=== PATIENT | female | born 1970 | race Caucasian/White ===

== ENCOUNTER 2020-05-31 12:34 | Outpatient (CLI) | payer OTHER, SELFPAY ==
--- NOTE | ~2020-05-31 | CT_ITS ---
EXAMINATION: CT pelvis w con DATE: 05/31/2020 13:09 INDICATION: Intra-abdominal and pelvic swelling, mass and lump. TECHNIQUE: Computed tomography (CT) of the pelvis was performed with 100 mL Omnipaque 350 intravenous contrast. Automated exposure control and iterative reconstruction technique were employed. The dose- length product was 247.64 mGy-cm. COMPARISON: None FINDINGS: There are no dilated loops of bowel. There is trace pelvic ascites. There are no pathologic ally enlarged lymph nodes. The bladder is distended. There is subcutaneous fat stranding in low anter ior abdominal wall, likely inflammation/scarring from prior surgery. There is moderate lower lumbar s pondylosis. IMPRESSION: 1. Subcutaneous fat stranding in lower anterior abdominal wall, likely inflammation/scarring from rec ent hysterectomy. Reviewed, dictated and finalized at location A. IMPRESSION: 1. Subcutaneous fat stranding in lower anterior abdominal wall, likely inflamma tion/scarring from recent hysterectomy.
[2020-05-31 12:58] LABS: Estimated Glomerular Filt Rate > 60
== END 2020-05-31 12:35 | disposition home or self-care (01) ==
PROVIDERS: PCP Internal Medicine; Visit Provider Internal Medicine
DX: R19.00 Intra-abdominal and pelvic swelling, mass and lump, unspecified site (principal)
CPT/HCPCS: 72193; Q9967

== ENCOUNTER 2021-03-29 01:50 | Day surgery (SDC) | payer OTHER, SELFPAY ==
[2021-03-15 12:29] VITALS: BMI 25.4
[2021-03-29 06:24] VITALS: BP 132/89; PULSE 77; RESP 18; TEMP 36.2; O2SAT 99
[2021-03-29] MEDS: LACTATED RINGERS 1,000 ML 150 ML IV CONT (06:29)
[2021-03-29 06:35] LABS: Glucose Point of Care 139 mg/dl (65-105)
--- NOTE | 2021-03-29 07:27 | WPDANESEPPF ---
Anes - Initial Pre Proc Eval Procedure: Operation Date: 03/29/21 07:30 Proposed Procedures p Screening Colonoscopy - Devon Gillis MD Date/Time: 03/29/21 07:27 Surgeon: Devon Gillis MD Pre Op Diagnosis: family hx of colon ca, neoplasm screening Patient Data Age: 50 Gender: F Height: 1.6 m Weight: 64.4 kg Last Vital Signs Temp 97.2 F L 03/29/21 06:24 Pulse 77 03/29/21 06:24 Resp 18 03/29/21 06:24 BP 132/89 03/29/21 06:24 Pulse Ox 99 03/29/21 06:24 Allergies Allergy/AdvReac Type Severity Reaction Status Date / Time azithromycin Allergy Severe Nausea and Verified 03/29/21 06:22 Vomiting clarithromycin Allergy Severe Nausea and Verified 03/29/21 06:22 Vomiting erythromycin base Allergy Severe Nausea and Verified 03/29/21 06:22 Vomiting trazodone AdvReac Intermediate Other Verified 03/29/21 06:22 Home Medications Medication Instructions Recorded Confirmed Type aspirin 81 mg tablet,delayed 81 mg PO DAILY 09/28/19 03/15/21 History release clonazepam 0.5 mg tablet 0.5 mg PO DAILY PRN #90 tablet 10/10/19 03/15/21 Rx alpha lipoic acid 600 mg capsule 1,200 mg PO DAILY cap 11/14/19 03/15/21 History cholecalciferol (vitamin D3) 100 4,000 unit PO DAILY 11/14/19 03/15/21 History mcg (4,000 unit) capsule vitamin B complex 1 tablet PO DAILY 11/14/19 03/15/21 History sitagliptin 100 mg tablet 100 mg PO DAILY #90 tablet 09/24/20 03/15/21 Rx rosuvastatin 40 mg tablet 40 mg PO DAILY #90 tablet 12/19/20 03/15/21 Rx albuterol sulfate 1 - 2 puff INHALATION PRN PRN 03/15/21 03/15/21 History icosapent ethyl [Vascepa] 2 gm PO BID 03/15/21 03/15/21 History magnesium oxide 400 mg PO DAILY 03/15/21 03/15/21 History montelukast 10 mg PO DAILY 03/15/21 03/15/21 History yy-th-[id number]-FA-Ca carb-vit K 1 tablet PO DAILY 03/15/21 03/15/21 History [Women's Multivitamin] metoprolol succinate 50 mg See Rx Instructions .ROUTE 03/18/21 Rx tablet,extended release 24 hr .COMPLEX #90 tablet levothyroxine 100 mcg tablet See Rx Instructions .ROUTE 03/28/21 Rx .COMPLEX #90 tablet Laboratory Tests 03/29/21 06:29 POC Capillary Glucose 139 mg/dl H mg/dl (65-105) Patient hx anesthesia problems: none Family hx anesthesia problems: none PMFSH Past Medical History Medical History (Updated 01/17/21 @ 08:25 by Hanh Muniz [facility]) A-fib BMI 25.0-25.9,adult BMI 26.0-26.9,adult BMI 27.0-27.9,adult Disorder of lipoprotein metabolism, unspecified DM type 2 (diabetes mellitus, type 2) Eczema Elevated platelet count Encounter for routine adult health examination without abnormal findings Family history of colon cancer Rahat's thyroiditis Hearing loss of both ears History of fatty infiltration of liver Hx of TIA (transient ischemic attack) and stroke Hyperlipemia Hypersomnolence Insomnia On [employer] drug therapy PCOS (polycystic ovarian syndrome) Perforated eardrum Pre-diabetes Screening for colon cancer Thrombocytosis Toenail torn away Surgical History Surgical History S/P hysterectomy Family History Family History Father Family history of diabetes mellitus in first degree relative Carcinoma of colon Mother Family history of diabetes mellitus in first degree relative Family history of coronary artery disease Sibling Family history of diabetes mellitus in first degree relative Grandparent Family history of coronary artery disease Unknown Asthma Social History Social History Smoking status: Never smoker Alcohol intake: current Substance use: never Substance use type: does not use Living arrangements: with family Spiritual care concerns: No Anes - Eval Final PreProcedure Day of Procedure 03/29/21 07:27 Patient weight: normal Heart: regular rate
--- NOTE | 2021-03-29 07:33 | PM.HPGS ---
History of Present Illness History of Present Illness Consent: Risks, benefits, and alternatives have been discussed and questions answered. Patient agrees to proceed with procedure. Chief complaint: family hx of colon ca, neoplasm screening Narrative: Lauren Rosales is a 50 year old female here for first screening colonoscopy, father had colon cancer Review of Systems Constitutional: Constitutional: Denies headache(s) and Denies weakness Eyes: Eyes: Denies blurry vision ENT: Reports Normal hearing present, Denies headache(s) and Denies neck pain Cardiovascular: Cardiovascular: Denies chest pain and Denies dyspnea Respiratory: Respiratory: Denies dyspnea Gastrointestinal: Gastrointestinal: Reports no additional gastrointestinal complaints Genitourinary: Genitourinary: Denies dysuria Musculoskeletal: Musculoskeletal: Denies neck pain Integumentary/Breasts: Skin/Breast: Denies dry skin Neurologic: Reports Normal hearing present, Denies headache(s) and Denies weakness Psychiatric: Psychiatric: Denies anxiety Endocrine: Endocrine: Denies change in body appearance Hematologic/Lymphatic: Hematologic/Lymphatic: Denies easy bleeding Allergic/Immunologic: Allergic/Immunologic: Denies urticaria [facility] Past Medical History Medical History (Updated 01/17/21 @ 08:25 by Hanh Muniz C[facility]) A-fib BMI 25.0-25.9,adult BMI 26.0-26.9,adult BMI 27.0-27.9,adult Disorder of lipoprotein metabolism, unspecified DM type 2 (diabetes mellitus, type 2) Eczema Elevated platelet count Encounter for routine adult health examination without abnormal findings Family history of colon cancer Rahat's thyroiditis Hearing loss of both ears History of fatty infiltration of liver Hx of TIA (transient ischemic attack) and stroke Hyperlipemia Hypersomnolence Insomnia On [facility] drug therapy PCOS (polycystic ovarian syndrome) Perforated eardrum Pre-diabetes Screening for colon cancer Thrombocytosis Toenail torn away Surgical History Surgical History S/P hysterectomy Family History Family History Father Family history of diabetes mellitus in first degree relative Carcinoma of colon Mother Family history of diabetes mellitus in first degree relative Family history of coronary artery disease Sibling Family history of diabetes mellitus in first degree relative Grandparent Family history of coronary artery disease Unknown Asthma Social History Social History Smoking status: Never smoker Alcohol intake: current Substance use: never Substance use type: does not use Living arrangements: with family Spiritual care concerns: No Meds Home Medications and Allergies Home Medications Medication Instructions Recorded Confirmed Type aspirin 81 mg tablet,delayed 81 mg PO DAILY 09/28/19 03/15/21 History release clonazepam 0.5 mg tablet 0.5 mg PO DAILY PRN #90 tablet 10/10/19 03/15/21 Rx alpha lipoic acid 600 mg capsule 1,200 mg PO DAILY cap 11/14/19 03/15/21 History cholecalciferol (vitamin D3) 100 4,000 unit PO DAILY 11/14/19 03/15/21 History mcg (4,000 unit) capsule vitamin B complex 1 tablet PO DAILY 11/14/19 03/15/21 History sitagliptin 100 mg tablet 100 mg PO DAILY #90 tablet 09/24/20 03/15/21 Rx rosuvastatin 40 mg tablet 40 mg PO DAILY #90 tablet 12/19/20 03/15/21 Rx albuterol sulfate 1 - 2 puff INHALATION PRN PRN 03/15/21 03/15/21 History icosapent ethyl [Vascepa] 2 gm PO BID 03/15/21 03/15/21 History magnesium oxide 400 mg PO DAILY 03/15/21 03/15/21 History montelukast 10 mg PO DAILY 03/15/21 03/15/21 History tm-uk-zklu-FA-Ca carb-vit K 1 tablet PO DAILY 03/15/21 03/15/21 History [Women's Multivitamin] metoprolol succinate 50 mg See Rx Instructions .ROUTE 03/18/21 Rx tablet,extended release 24 hr .COMPLEX #90 tablet levo
[2021-03-29 07:46] VITALS: BP 105/60; PULSE 69; RESP 17; O2SAT 98
[2021-03-29 07:56] VITALS: BP 118/78; PULSE 66; RESP 15; O2SAT 100
[2021-03-29 08:06] VITALS: BP 132/68; PULSE 70; RESP 18; O2SAT 100
== END 2021-03-29 08:15 | disposition home or self-care (01) ==
PROVIDERS: PCP Internal Medicine; Visit Provider Internal Medicine Gastroenterology
PROC: 0DJD8ZZ Inspection of Lower Intestinal Tract, Via Natural or Artificial Opening Endoscopic (ICD-10-PCS; CPT 45378; principal; 2021-03-29 07:30)
DX: Z12.11 Encounter for screening for malignant neoplasm of colon (principal); K64.8 Other hemorrhoids; Z80.0 Family history of malignant neoplasm of digestive organs; Z79.82 Long term (current) use of aspirin; Z79.84 Long term (current) use of oral hypoglycemic drugs; I48.91 Unspecified atrial fibrillation; E11.9 Type 2 diabetes mellitus without complications; E06.3 Autoimmune thyroiditis; E28.2 Polycystic ovarian syndrome; Z86.73 Personal history of transient ischemic attack (TIA), and cerebral infarction without residual deficits
CPT/HCPCS: 45378; 82948; J2704; J7120

== ENCOUNTER → 2021-10-30 09:00 | Outpatient (CLI) | payer OTHER, SELFPAY ==
--- NOTE | ~2021-10-30 | XR_ITS ---
EXAMINATION: XR foot LT standing 2V DATE: 10/30/2021 09:22 INDICATION: Left foot pain. TECHNIQUE: 2 views of left foot standing were obtained. COMPARISON: None. FINDINGS: Bone alignment is normal. No fracture. There is mild osteoarthritis of first metatarsophala ngeal joint and first tarsometatarsal joint. There are enthesophytes at the posterior and plantar asp ects of calcaneal tuberosity. IMPRESSION: 1. Mild polyarticular osteoarthritis. Reviewed, dictated and finalized at location A. [employer]
== END ==
PROVIDERS: PCP Internal Medicine; Visit Provider Internal Medicine
DX: M19.072 Primary osteoarthritis, left ankle and foot (principal)
CPT/HCPCS: 73620

== ENCOUNTER 2022-01-19 06:58 | Emergency (ER) | payer OTHER, SELFPAY ==
[2022-01-19] VITALS (8 sets, daily range): BP systolic 89–140; BP diastolic 52–72; PULSE 79–99; RESP 12–21; TEMP 36.9; O2SAT 96–98
--- NOTE | ~2022-01-19 | CT_ITS ---
EXAMINATION: CT brain wo con DATE: 01/19/2022 08:32 INDICATION: Headache TECHNIQUE: Computed tomography (CT) of the head was performed without intravenous contrast. Sagittal and coronal reconstructions were performed. The mA was adjusted according to patient size. Iterative reconstruction technique was employed. The dose-length product was 605.33 mGy-cm. COMPARISON: head CT dated 02/04/2018 FINDINGS: No acute intracranial hemorrhage, acute infarction or abnormal extra axial fluid collection. Ventricl es are normal and symmetric. No mass/mass effect. The orbits, paranasal sinuses and mastoid air cells are normal. IMPRESSION: 1. No acute intracranial process. Reviewed, dictated and finalized at location A.
--- NOTE | ~2022-01-19 | XR_ITS ---
EXAMINATION: XR chest 1V portable DATE: 01/19/2022 08:32 INDICATION: Cough, weakness and body aches TECHNIQUE: frontal view of the chest was obtained. COMPARISON: Chest radiograph dated 02/04/2018 FINDINGS: The lungs remain clear with no focal airspace opacities, pulmonary edema, pleural effusion or pneumot horax. The cardiomediastinal silhouette is normal. Visualized bones and soft tissues are unremarkable . IMPRESSION: 1. No acute cardiopulmonary disease. Reviewed, dictated and finalized at location A.
--- NOTE | 2022-01-19 07:38 | ECG_ITS ---
Measurements Intervals [place] Rate: 84 P: 72 MN: 166 QRS: 7 QRSD: 88 T: 25 QT: 349 QTc: 413 Interpretive Statements SINUS RHYTHM BORDERLINE T WAVE ABNORMALITY- ANT/INF LEADS BASELINE ARTIFACT- V4 BORDERLINE ECG Electronically Signed On 01-19-2022 11:02:03 CDT by Kelton Drew D.O.
--- NOTE | 2022-01-19 07:45 | ED.GENADULT ---
HPI - General Adult General Chief complaint: Headache Stated complaint: LASSITER, nausea, body aches, covid booster yesterday Time Seen by Provider: 01/19/22 07:15 Source: RN notes reviewed History of Present Illness HPI narrative: Patient presents emergency department from home for not feeling well. Patient states that she received her second COVID booster yesterday. States that she was feeling fine at that time. She states she awoke in the middle of the night with a headache and generalized body aches, and nausea. She denies any measured fevers at home she denies any shortness of breath or cough denies any abdominal pain. States she did try taking ibuprofen at home with minimal relief patient denies having any chest pain Related Data Home Medications Medication Instructions Recorded Confirmed aspirin 81 mg tablet,delayed 81 mg PO DAILY 09/28/19 12/27/21 release alpha lipoic acid 600 mg capsule 1,200 mg PO DAILY cap 11/14/19 12/27/21 cholecalciferol (vitamin D3) 100 4,000 unit PO DAILY 11/14/19 12/27/21 mcg (4,000 unit) capsule vitamin B complex 1 tablet PO DAILY 11/14/19 12/27/21 albuterol sulfate 1 - 2 puff INHALATION PRN PRN 03/15/21 12/27/21 magnesium oxide 400 mg PO DAILY 03/15/21 12/27/21 ci-sq-xbku-FA-Ca carb-vit K 1 tablet PO DAILY 03/15/21 12/27/21 [Women's Multivitamin] Allergies Allergy/AdvReac Type Severity Reaction Status Date / Time azithromycin Allergy Severe Nausea and Verified 01/19/22 08:20 Vomiting clarithromycin Allergy Severe Nausea and Verified 01/19/22 08:20 Vomiting erythromycin base Allergy Severe Nausea and Verified 01/19/22 08:20 Vomiting trazodone AdvReac Intermediate Other Verified 01/19/22 08:20 Review of Systems Review of Systems: Gen.: Denies fevers or chills reports generalized body aches Eyes: Denies eye pain or visual change ENT: Denies congestion Respiratory: Denies shortness of breath or cough CV: Denies chest pain or palpitations GI: Denies abdominal pain vomiting or diarrhea. Reports nausea Musculoskeletal: Denies back pain or muscle pain Neuro: Denies numbness, tingling, weakness or focal weakness Skin: Denies rash Except as documented, all other systems reviewed and negative [facility] [place] Past Medical History Medical History A-fib Arthralgia BMI 25.0-25.9,adult BMI 26.0-26.9,adult BMI 27.0-27.9,adult Disorder of lipoprotein metabolism, unspecified DM type 2 (diabetes mellitus, type 2) Eczema Encounter for routine adult health examination without abnormal findings Family history of colon cancer Follow up Rahat's thyroiditis Hearing loss of both ears Heel spur History of fatty infiltration of liver Hx of TIA (transient ischemic attack) and stroke Hyperlipemia Hypersomnolence Insomnia Myalgia On [facility] drug therapy Pain of left heel PCOS (polycystic ovarian syndrome) Perforated eardrum Positive JESSICA (antinuclear antibody) Pre-diabetes Screening for colon cancer Statin intolerance Thrombocytosis Toenail torn away Surgical History Surgical History S/P hysterectomy Family History Family History Father Family history of diabetes mellitus in first degree relative Carcinoma of colon Mother Family history of diabetes mellitus in first degree relative Family history of coronary artery disease Sibling Family history of diabetes mellitus in first degree relative Grandparent Family history of coronary artery disease Unknown Asthma Social History Social History Smoking status: Never smoker Alcohol intake: current Substance use: never Substance use type: does not use Spiritual care concerns: No Exam Narrative: APPEARANCE: No acute distress, nontoxic, resting in bed EYES: EOMI HEENT: Normocephalic, atra
[2022-01-19 07:53] LABS: Basophils Percent Auto 0.1 % (0.2-1.2); Eosinophils Percent Auto 0.1 % (0-4.4); Hematocrit 40.2 % (37.0-47.0); Hemoglobin 12.5 g/dL (12.0-15.0); Immature Granulocyte Absolute 0.06 K/mm3 (0.00-0.031); Immature Granulocyte Percent A 0.4 % (0-0.5); Lymphocytes Absolute Auto 0.41 K/mm3 (0.9-3.2); Lymphocytes Percent Auto 2.6 % (18.3-44.2); Mean Corpuscular HGB Conc 31.1 g/dl (32-36); Mean Corpuscular Hemoglobin 29.1 pg (26-34); Mean Corpuscular Volume 93.5 fl (80-100); Monocytes Absolute Auto 0.6 K/mm3 (0.1-0.6); Monocytes Percent Auto 3.6 % (2.6-8.5); Neutrophils Absolute Auto 14.9 K/mm3 (1.3-6.7); Neutrophils Percent Auto 93.2 % (45.5-73.1); Platelet Count Result 382 k/mm3 (150-375); Red Cell Distribution Width 14.1 % (11.5-14.5)
[2022-01-19 08:02] LABS: Alanine Aminotransferase 38 U/L (6-35); Albumin Level 5.4 g/dL (3.5-5.1); Alkaline Phosphatase 51 U/L (38-126); Anion Gap 13 mmol/L (8-16); Aspartate Amino Transferase 40 U/L (14-36); Bilirubin,Total 0.9 mg/dL (0.2-1.3); Blood Urea Nitrogen 14 mg/dL (7-17); Calcium 9.6 mg/dL (8.4-10.2); Carbon Dioxide 23 mmol/L (22-30); Chloride 100 mmol/L (98-107); Creatine Kinase 104 U/L (30-135); Estimated Glomerular Filt Rate > 60; Glucose 146 mg/dL (65-110); Lipase 79 U/L (23-300); Platelet Estimate Adequate (Adequate); Potassium 4.2 mmol/L (3.4-5.0); Sodium 136 mmol/L (137-145)
[2022-01-19 08:03] LABS: INR 1.1; Ovalocytes 1+ (NORMAL)
[2022-01-19] MEDS: SODIUM CHLORIDE 0.9% IV 1,000 ML 999 ML IV CONT ×2 (08:07→09:33)
[2022-01-19] MEDS: ONDANSETRON INJ 4 MG/2 ML VIAL IV PUSH (08:08)
[2022-01-19 09:49] LABS: Bacteria Urine Trace /hpf; Mucus Urine Rare /lpf; RBC Urine 0-2 /hpf (0-2); Squamous Epithelial Cell Urine Rare /hpf (Few); WBC Urine 0-3 /hpf
[2022-01-19 09:52] LABS: Add Urine Microscopic? YES; Appearance Urine Clear (Clear); Bilirubin Urine Negative (Negative); Blood Urine Negative (Negative); Color Urine Yellow (Yellow); Glucose Urine UA Negative (Negative); Ketones Urine 1+ mg/dL (Negative); Leukocyte Esterase Ur Negative LEU/UL (Negative); Nitrate Urine Negative (Negative); Protein Urine Negative (Negative); Urobilinogen Urine 0.2 mg/dL (<2.0)
[2022-01-19 10:51] LABS: Influenza A QL RT-PCR Negative (Negative); Influenza B QL RT-PCR Negative (Negative); SARS-CoV-2 RNA PCR Negative
== END 2022-01-19 11:35 | disposition home or self-care (01) ==
PROVIDERS: Emergency Provider Emergency Medicine; PCP Internal Medicine
DX: T88.1XXA Other complications following immunization, not elsewhere classified, initial encounter (principal); R51.9 Headache, unspecified; T50.B95A Adverse effect of other viral vaccines, initial encounter; I48.91 Unspecified atrial fibrillation; E11.9 Type 2 diabetes mellitus without complications; Z79.82 Long term (current) use of aspirin; Z86.73 Personal history of transient ischemic attack (TIA), and cerebral infarction without residual deficits; Y84.8 Other medical procedures as the cause of abnormal reaction of the patient, or of later complication, without mention of misadventure at the time of the procedure
CPT/HCPCS: 36415; 70450; 71045; 80053; 81001; 82550; 83690; 85025; 85610; 85730; 87502; 93005; 96361; 96365; 96375; 99284; C9803; J0131; J2405; J7030; U0003; U0005

== ENCOUNTER 2022-05-15 08:59 | Outpatient (CLI) | payer OTHER, SELFPAY | END 2022-05-15 09:00 | disposition home or self-care (01) | LOC: ANHAUDIO 09:00 | PROVIDERS: PCP Internal Medicine; Referring Provider Otolaryngology; Visit Provider Otolaryngology | DX: H72.92 Unspecified perforation of tympanic membrane, left ear (principal); H90.12 Conductive hearing loss, unilateral, left ear, with unrestricted hearing on the contralateral side | CPT/HCPCS: 92557; 92567 ==